=== PATIENT | male | born 1930 | race Caucasian/White ===

== ENCOUNTER 2018-02-03 04:44 | Emergency (ER) | payer OTHER, MEDICARE, BC ==
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
[2018-02-03] MEDS ORDERED: ACETAMINOPHEN 325 MG TABLET PO ONE (05:28)
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
[2018-02-03] MEDS ORDERED: LIDOCAINE 5% (700 MG) TRANSDERMAL ADH..PATCH TP ONE (08:35)
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
[2018-02-03 09:07] VITALS: BP 98/48
== END 2018-02-03 09:12 | disposition home or self-care (01) ==
LOC: ER 04:44
DX: M54.2 Cervicalgia (principal); M25.511 Pain in right shoulder; V49.40XA Driver injured in collision with unspecified motor vehicles in traffic accident, initial encounter; F17.290 Nicotine dependence, other tobacco product, uncomplicated; Z88.0 Allergy status to penicillin; Z88.8 Allergy status to other drugs, medicaments and biological substances
CPT/HCPCS: 99284; 72125; L0172; L0120

== ENCOUNTER 2018-04-14 18:14 | Emergency (ER) | payer MEDICARE, BC ==
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
[2018-04-14 20:56] LABS: ABSOLUTE LYMPHOCYTES (AUTO) 1.5 10^3/uL (0.5-4.7); ABSOLUTE MONOCYTES (AUTO) 0.6 10^3/uL (0.1-1.4); ABSOLUTE NEUT (AUTO) 4.6 10^3/uL (1.7-8.2); BASOPHILS % (AUTO) 0.4 % (0-2); EOSINOPHILS % (AUTO) 0.5 % (0-6); HEMATOCRIT 34.5 % (37.9-51.0); HEMOGLOBIN 11.9 g/dL (13.5-17.0); LYMPHOCYTES % (AUTO) 22.2 % (13-45); MEAN CORPUSCULAR HEMOGLOBIN 32.8 pg (27.0-33.4); MEAN CORPUSCULAR HGB CONC 34.4 g/dL (32.0-36.0); MEAN CORPUSCULAR VOLUME 95 fl (80-97); MONOCYTES % (AUTO) 8.5 % (3-13); PLATELET COUNT 187 10^3/uL (150-450); RED BLOOD COUNT 3.62 10^6/uL (4.35-5.55); RED CELL DISTRIBUTION WIDTH 15.6 % (11.5-14.0); SEGMENTED NEUTROPHILS % (AUTO) 68.4 % (42-78); TOTAL CELLS COUNTED % (AUTO) 100 %; WHITE BLOOD COUNT 6.7 10^3/uL (4.0-10.5)
--- NOTE | 2018-04-14 20:57 | RADIOLOGY REPORT (SQ) ---
EXAM DESCRIPTION: CHEST 2 VIEWS COMPLETED DATE/TIME: 04/14/2018 8:47 pm REASON FOR STUDY: sob COMPARISON: None. EXAM PARAMETERS: NUMBER OF VIEWS: two views TECHNIQUE: Digital Frontal and Lateral radiographic views of the chest acquired. RADIATION DOSE: NA LIMITATIONS: none FINDINGS: LUNGS AND PLEURA: Chronic interstitial changes. No focal infiltrate, masses or pneumothor ax. No pleural effusion. MEDIASTINUM AND HILAR STRUCTURES: No masses or contour abnormalities. HEART AND VASCULAR STRUCTURES: Heart normal size. No evidence for failure. BONES: No acute findings. HARDWARE: Sternotomy wires. Defibrillator. OTHER: No other significant finding. IMPRESSION: NO ACUTE RADIOGRAPHIC FINDING IN THE CHEST. TECHNICAL DOCUMENTATION: JOB ID: [id number] [employer]- All Rights Reserved Reading location - IP/workstation name: [email or web address]
[2018-04-14 21:09] LABS: ALANINE AMINOTRANSFERASE 54 U/L (21-72); ALBUMIN 4.3 g/dL (3.5-5.0); ALKALINE PHOSPHATASE 52 U/L (38-126); ANION GAP 7 (5-19); ASPARTATE AMINO TRANSFERASE 33 U/L (17-59); BILIRUBIN,DIRECT 0.5 mg/dL (0.0-0.4); BILIRUBIN,TOTAL 1.4 mg/dL (0.2-1.3); BLOOD UREA NITROGEN 27 mg/dL (7-20); CALCIUM 9.6 mg/dL (8.4-10.2); CARBON DIOXIDE 29 mmol/L (22-30); CHLORIDE 103 mmol/L (98-107); GLUCOSE 161 mg/dL (75-110); POTASSIUM 4.5 mmol/L (3.6-5.0); SODIUM 138.9 mmol/L (137-145); TOTAL PROTEIN 7.4 g/dL (6.3-8.2)
[2018-04-14 21:59] LABS: TROPONIN I 0.04 ng/mL
[2018-04-14] MEDS ORDERED: FUROSEMIDE 20 MG TABLET PO ONE (22:31)
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
[2018-04-15] MEDS ORDERED: POTASSIUM CHLORIDE 20 MEQ/15 ML UDCUP PO ONE (00:44)
[2018-04-15 01:13] VITALS: BP 124/60
--- NOTE | 2018-04-15 14:33 | EKG REPORT ---
SEVERITY:- ABNORMAL ECG - VENTRICULAR-PACED RHYTHM : Confirmed by: Caitie Narvaez MD 15-Apr-2018 14:32:54
== END 2018-04-15 01:13 | disposition home or self-care (01) ==
LOC: ER 18:14
DX: I50.9 Heart failure, unspecified (principal); R60.0 Localized edema; E11.9 Type 2 diabetes mellitus without complications; R06.02 Shortness of breath; R74.8 Abnormal levels of other serum enzymes; R79.89 Other specified abnormal findings of blood chemistry; F17.200 Nicotine dependence, unspecified, uncomplicated; I47.2 Ventricular tachycardia; Z95.810 Presence of automatic (implantable) cardiac defibrillator; Z79.899 Other long term (current) drug therapy; Z88.8 Allergy status to other drugs, medicaments and biological substances; Z88.0 Allergy status to penicillin; Z95.1 Presence of aortocoronary bypass graft
CPT/HCPCS: 93005; 99284; 36415; 85025; 80053; 84484; 83880; 71046; 93010; A9270 ×2

== ENCOUNTER → 2018-12-14 | Outpatient (CLI) | payer MEDICARE, BC ==
--- NOTE | 2018-12-14 09:49 | RADIOLOGY REPORT (SQ) ---
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 TECHNIQUE: CT scan of the chest performed using helical scanning technique with dynamic intravenous contrast injection. Images reviewed with lung, soft tissue and bone windows. Reconstructed coronal and sagittal MPR and MIP images reviewed. All images stored on PACS. All CT scanners at this facility use dose modulation, iterative reconstruction, and/or weight based d osing when appropriate to reduce radiation dose to as low as reasonably achievable (ALARA). [facility]: Dose Right [facility]: CareDose [facility]: Dose Right [facility]: Teradose 4D [facility]: [employer] CONTRAST TYPE AND DOSE: contrast/concentration: Isovue 350.00 mg/ml; Total Contrast Delivered: 80.0 ml; Total Saline Delivered: 55.0 ml RENAL FUNCTION: Creatinine 1.0 RADIATION DOSE: . LIMITATIONS: None. 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 No consolidation. No suspicious pulmonar y nodules. There are bilateral emphysematous changes. There is a small subpleural bleb in the right lower lobe. HILAR AND MEDIASTINAL STRUCTURES: No identified masses or abnormal nodes. HEART AND VASCULAR STRUCTURES: There is coronary artery calcification. No pericardial effusion. HARDWARE: Median sternotomy wires are in place along with battery pack and leads. UPPER ABDOMEN: There are gallstones. THYROID AND OTHER SOFT TISSUES: No masses. No adenopathy. BONES: There is slight wedging of T12. This has been present at least since March 2018. OTHER: No other significant finding. IMPRESSION: Emphysematous changes with subpleural fibrosis. No evidence of metastatic disease in th e chest. TECHNICAL DOCUMENTATION: JOB ID: [id number] Quality ID # [id number]: Final reports with documentation of one or more dose reduction techniques (e.g., Au tomated exposure control, adjustment of the mA and/or kV according to patient size, use of iterative reconstruction technique) 2010 [employer]- All Rights Reserved Reading location - IP/workstation name: [email or web address]
--- NOTE | 2018-12-14 09:51 | RADIOLOGY REPORT (SQ) ---
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 Reconstructed coronal and sagittal MPR images reviewed. All images stored on PACS. All CT scanners at this facility use dose modulation, iterative reconstruction, and/or weight based d osing when appropriate to reduce radiation dose to as low as reasonably achievable (ALARA). [facility]: Dose Right [facility]: CareDose [facility]: Dose Right [facility]: Teradose 4D [facility]: [employer] CONTRAST TYPE AND DOSE: 80 mL IV Omnipaque 350- low osmolar. RENAL FUNCTION: Creatinine 1.0 RADIATION DOSE: 13.7 mGy . LIMITATIONS: Suboptimal contrast bolus FINDINGS: SKULL BASE: Intact. Inferior brain parenchyma unremarkable MAJOR SALIVARY GLANDS: No solid or cystic masses. No inflammatory changes. LYMPHADENOPATHY: No adenopathy. MUCOSAL MASSES OR ASYMMETRY: No mucosal masses or asymmetry. LARYNX/CORDS: There is calcification along the base of the epiglottis unchanged from 02/03/2018. Ther e is medial deviation of the right arytenoid cartilage, question right vocal cord dysfunction. No di screte supraglottic or glottic mass is identified. VASCULAR STRUCTURES: The major vessels are patent. LUNG APICES: Clear. BONES: Degenerative disc changes at C4-5, C5-6 and C6-7 THYROID: Normal size. No masses. PARANASAL SINUSES: Clear. OTHER: No other significant finding. IMPRESSION: No bulky laryngeal mass is identified. TECHNICAL DOCUMENTATION: JOB ID: [id number] Quality ID # [id number]: Final reports with documentation of one or more dose reduction techniques (e.g., Au tomated exposure control, adjustment of the mA and/or kV according to patient size, use of iterative reconstruction technique) 2010 [employer]- All Rights Reserved Reading location - IP/workstation name: [email or web address]
== END ==
LOC: RAD 08:53
PROVIDERS: ATTEND Otolaryngology
DX: C32.9 Malignant neoplasm of larynx, unspecified (principal)
CPT/HCPCS: 70491; 71260; 82565

== ENCOUNTER → 2018-12-23 | Outpatient (CLI) | payer MEDICARE, BC ==
[~2018-12-23] MED LIST: BUPIVACAINE HCL 0.5 % INJ/PF 30 ML SDV ONE; METHYLPREDNISOLONE ACETATE INJ 40 MG/1 ML ML ONE
--- NOTE | 2018-12-24 09:07 | RADIOLOGY REPORT (SQ) ---
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 RADIONUCLIDE AND DOSE: 11.56 mCi F18 FDG The route of agent administration: Intravenous FASTING BLOOD SUGAR: 84 mg/dl CONTRAST TYPE AND DOSE: No CT contrast given. TECHNIQUE: Blood glucose level was verified. Above dose of FDG was injected intravenously. 2-D seg mented attenuation correction images were obtained from the base of the skull to the midthighs. Nonc ontrast CT images were obtained for attenuation correction and fusion with emission images. CT image s were performed without oral or intravenous contrast and are not sensitive for parenchymal lesions. A series of overlapping emission PET images were obtained. Images reviewed and manipulated at [facility] work station by the radiologist. Images stored on PACS. LIMITATIONS: None. FINDINGS: HEAD AND NECK: There is increased uptake 6.1 SUV adjacent to the left aryepiglottic fold. Slight asymmetry without well defined mass. CHEST: No areas of abnormal metabolic activity in the chest. ABDOMEN AND PELVIS: No areas of abnormal metabolic activity in the abdomen or pelvis. Expected physi ologic activity is present in the genitourinary system and bowel. PROXIMAL LOWER EXTREMITIES: No areas of abnormal metabolic activity in the soft tissues of the lower extremities. BONES: No abnormal metabolic activity in the visualized skeleton. ADDITIONAL CT FINDINGS: No additional significant findings on the noncontrast CT images. OTHER: Blood pool 1.7 SUV. Liver background 1.9 SUV. IMPRESSION: Hypermetabolic left aryepiglottic fold. No evidence of metastatic disease. TECHNICAL DOCUMENTATION: JOB ID: [id number]- All Rights Reserved Reading location - IP/workstation name: [email or web address]
== END ==
LOC: RAD 19:09
PROVIDERS: ATTEND Otolaryngology
DX: C32.9 Malignant neoplasm of larynx, unspecified (principal)
CPT/HCPCS: 78815; A9552; J1030; J3490

== ENCOUNTER 2019-11-22 08:23 | Inpatient (IN) | payer MEDICARE, BC ==
[2019-11-22] MEDS ORDERED: NORMAL SALINE 1000 ML 1,000 ML IV ONE (08:33)
[2019-11-22 08:55] LABS: ABSOLUTE LYMPHOCYTES (AUTO) 0.4 10^3/uL (0.5-4.7); ABSOLUTE MONOCYTES (AUTO) 0.3 10^3/uL (0.1-1.4); ABSOLUTE NEUT (AUTO) 6.2 10^3/uL (1.7-8.2); BASOPHILS % (AUTO) 0.3 % (0-2); HEMATOCRIT 27.8 % (37.9-51.0); HEMOGLOBIN 9.8 g/dL (13.5-17.0); LYMPHOCYTES % (AUTO) 5.5 % (13-45); MEAN CORPUSCULAR HEMOGLOBIN 34.2 pg (27.0-33.4); MEAN CORPUSCULAR HGB CONC 35.4 g/dL (32.0-36.0); MEAN CORPUSCULAR VOLUME 97 fl (80-97); MONOCYTES % (AUTO) 4.5 % (3-13); PLATELET COUNT 198 10^3/uL (150-450); RED BLOOD COUNT 2.87 10^6/uL (4.35-5.55); RED CELL DISTRIBUTION WIDTH 17.5 % (11.5-14.0); SEGMENTED NEUTROPHILS % (AUTO) 89.7 % (42-78); TOTAL CELLS COUNTED % (AUTO) 100 %
[2019-11-22 08:57] LABS: VENOUS BLOOD BASE EXCESS -2.1 mmol/L; VENOUS BLOOD HCO3 21.1 mmol/L (20-32); VENOUS BLOOD PCO2 31.3 mmHg (35-63); VENOUS BLOOD PH 7.45 (7.30-7.42)
[2019-11-22 09:00] LABS: APPEARANCE,URINE CLEAR; BILIRUBIN,URINE NEGATIVE (NEGATIVE); COLOR,URINE YELLOW; GLUCOSE, URINE 50 mg/dL (NEGATIVE); KETONES,URINE TRACE mg/dL (NEGATIVE); LEUKOCYTE ESTERASE,URINE NEGATIVE (NEGATIVE); NITRITE,URINE NEGATIVE (NEGATIVE); PROTEIN,URINE NEGATIVE (NEGATIVE); URINE SPECIFIC GRAVITY 1.018; UROBILINOGEN,URINE NEGATIVE mg/dL (<2.0)
--- NOTE | 2019-11-22 09:14 | RADIOLOGY REPORT (SQ) ---
EXAM DESCRIPTION: CT HEAD WITHOUT IMAGES COMPLETED DATE/TIME: 11/22/2019 8:54 am REASON FOR STUDY: Unresponsive COMPARISON: 12/23/2018 TECHNIQUE: Axial images acquired through the brain without intravenous contrast. Images reviewed wi th bone, brain and subdural windows. Additional sagittal and coronal reconstructions were generated. Images stored on PACS. All CT scanners at this facility use dose modulation, iterative reconstruction, and/or weight based d osing when appropriate to reduce radiation dose to as low as reasonably achievable (ALARA). [facility]: Dose Right [facility]: CareDose [facility]: Dose Right [facility]: Teradose 4D [facility]: [employer] RADIATION DOSE: CT Rad equipment meets quality standard of care and radiation dose reduction techniq ues were employed. CTDIvol: 53.2 mGy. DLP: 964 mGy-cm. mGy. LIMITATIONS: None. FINDINGS: VENTRICLES: Significant mass effect on the right lateral ventricular system with effacemen t and leftward shift. CEREBRUM: There is a large right holohemispheric mixed attenuation subdural hematoma all measuring up to 3.3 cm in maximal thickness (series 401, image 30). There is significant holo hemispheric sulcal and ventricular system effacement. There is associated leftward midline shift measuring 2.7 cm appr oximately with associated subfalcine herniation. No definitive large vascular territory ischemic inf arct at this time. There are nonspecific periventricular and subcortical areas of hypoattenuation, l ikely microangiopathic change. CEREBELLUM: No masses. No hemorrhage. No alteration of density. No evidence for acute infarction. EXTRAAXIAL SPACES: Large right-sided subdural hematoma as above. No discrete mass. ORBITS AND GLOBE: No intra- or extraconal masses. Normal contour of globe without masses. Bilateral cataract surgery. CALVARIUM: No fracture. No suspicious osseous lesions. PARANASAL SINUSES: Mucosal thickening within the ethmoid air cells. Gas fluid level noted within the left maxillary sinus. Remaining sinuses are clear. SOFT TISSUES: There are multiple small foci of gas within the bilateral advanced registered nurse spaces No mass. N o drainable collection. OTHER: No other significant finding. IMPRESSION: 1. Large right holohemispheric mixed density subdural hematoma measuring up to 3.3 cm i n maximal thickness. Significant sulcal and ventricular system effacement with 2.7 cm of right to le ft midline shift and associated subfalcine herniation. Foramen magnum remains patent. 2. Scattered foci of subcutaneous gas within the bilateral advanced registered nurse spaces, etiology uncertain but differential includes iatrogenic from intravenous administration, penetrating injury or gas-forming organism with the former favored. 3. 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 EVIDENCE OF ACUTE STROKE: Subdural hematoma COMMENT: Pertinent positive or negative findings of the imaging study reported as a CRITICAL EXAM yanna DEVRIES MD at09:04 on 11/22/2019. Category of Critical Exam: Subdural hematoma Quality ID # [id number]: Final reports with documentation of one or more dose reduction techniques (e.g., Au tomated exposure control, adjustment of the mA and/or kV according to patient size, use of iterative reconstruction technique) TECHNICAL DOCUMENTATION: JOB ID: [id number] 2010 [employer]- All Rights Reserved Reading location - IP/workstation name: [email or web address]
--- NOTE | 2019-11-22 09:16 | RADIOLOGY REPORT (SQ) ---
EXAM DESCRIPTION: CHEST SINGLE VIEW IMAGES COMPLETED DATE/TIME: 11/22/2019 8:52 am REASON FOR STUDY: Unresponsive COMPARISON: 04/14/2018 EXAM PARAMETERS: NUMBER OF VIEWS: One view. TECHNIQUE: Single frontal radiographic view of the chest acquired. RADIATION DOSE: NA LIMITATIONS: None. FINDINGS: LUNGS AND PLEURA: Low volumes with ill-defined bibasilar opacities possibly atelectasis or infection. Trace left effusion. No pneumothorax. MEDIASTINUM AND HILAR STRUCTURES: No discrete mass. HEART AND VASCULAR STRUCTURES: Enlarged, stable. BONES: Sternotomy changes. HARDWARE: Left sided cardiac pacer/defibrillator with leads overlying right atrium and right ventricl e, stable. Sternotomy hardware. Surgical clips overlie left neck. Skin chemo overlie right chest . OTHER: No other significant finding. IMPRESSION: Minimal ill-defined bibasilar opacities, possibly atelectasis or infection, with trace l eft effusion. TECHNICAL DOCUMENTATION: JOB ID: [id number] 2010 [employer]- All Rights Reserved Reading location - IP/workstation name: [email or web address]
[2019-11-22 09:36] LABS: FREE T3 2.43 pg/mL (2.77-5.27); FREE T4 (FREE THYROXINE) 1.46 ng/dL (0.78-2.19)
[2019-11-22] MEDS ORDERED: ACETAMINOPHEN 650 MG SUPP.RECT PR PRN (10:29)
--- NOTE | 2019-11-22 10:29 | PDOC H&P ---
History of Present Illness Admission Date/PCP: SOLOMON HAYS MD Patient complains of: Patient was found unresponsive by family. History of Present Illness: YAMIL VÁZQUEZ is a 89 year old male who recently underwent an esophagectomy with complications. Since August he has been in the hospital for more than 60 days and has required multiple surgeries. He has an extensive cardiac history as well. The patient was well at that time last night. This morning he was unresponsive. There was vomit on the bed. EMS was called right away. Family reports that he has been having some diarrhea for the past week but otherwise has shown slow improvement from his stented complicated hospitalization. He did have a fall 2 weeks ago and he is not on anticoagulation. During the evaluation emergency department he was found to have a massive right-sided subarachnoid hemorrhage with shift herniation. I was called by the emergency department physician and we both spoke to the family about the grave prognosis. The patient's daughter and granddaughter are both nurses. After lengthy discussions and realistic expectations it was decided to admit the patient for comfort measures only. Past Medical History Cardiac Medical History: Reports: Atrial Fibrillation, Congestive Heart Failure, Myocardial Infarction, Hyperlipidema Endocrine Medical History: Reports: Diabetes Mellitus Type 2 Past Surgical History Past Surgical History: Reports: Orthopedic Surgery - hand, Other - Esophagectomy with pectoral flap reconstruction. Recent tracheostomy. 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 - Advance Directive Resuscitation Status: Comfort Measures Only Surrogate healthcare decision maker:: The patient's , daughter and granddaughter all collaborated on decision crispin ing today Family History Family History: Reviewed & Not Pertinent Family History: Unable to obtain due to patient unresponsive Parental Family History Reviewed: No Children Family History Reviewed: No Sibling(s) Family History Reviewed.: No Medication/Allergy Home Medications: Apixaban [Eliquis] 5 mg PO Q12 04/14/18 Carvedilol [Coreg 3.125 mg Tablet] 3.125 mg PO Q12 04/14/18 Cholecalciferol (Vitamin D3) [Vitamin D3 1000 Unit Tablet] 1,000 unit PO DAILY 04/14/18 Glyburide 2.5 mg PO BID 04/14/18 Magnesium Oxide 400 mg PO DAILY 04/14/18 Cedar-3 Fatty Acids/Fish Oil [Fish Oil 1,000 Mg Capsule] 1 each PO DAILY 04/14/18 Quinapril HCl [Accupril] 5 mg PO DAILY 04/14/18 Rosuvastatin Calcium [Crestor 5 mg Tablet] 5 mg PO DAILY 04/14/18 Spironolactone 12.5 mg PO BID 04/14/18 Tamsulosin HCl [Flomax] 0.4 mg PO DAILY 04/14/18 Furosemide 20 mg PO BID #10 tablet 04/15/18 Potassium Chloride 20 meq PO DAILY #30 tab.er.prt 04/15/18 Allergies/Adverse Reactions: diazepam [From Valium] Allergy (Verified 04/14/18 19:58) Penicillins Allergy (Verified 04/14/18 19:58) zolpidem [From Ambien] Allergy (Verified 04/14/18 19:58) Review of Systems ROS unobtainable: Due to mental status Physical Exam Vital Signs: Temp Pulse Resp BP Pulse Ox 94.2 F L 71 15 110/67 95 11/22/19 08:32 11/22/19 08:32 11/22/19 10:11 11/22/19 10:11 11/22/19 10:11 Intake & Output 11/21/19 11/22/19 11/23/19 06:59 06:59 06:59 Weight 77.1 kg General appearance: PRESENT: well-developed Head exam: PRESENT: atraumatic, normocephalic Eye exam: PRESENT: other - Enlarged right pupil unresponsive to light. Left pupil minimally responsive. Ear exam: PRESENT: normal external ear exam. ABSENT: bleeding, drainage Neck exam: PRESENT: tracheostomy Respiratory exam: PRESENT: clear to auscultation pj - Anteriorly, symmetrical, unlabored. ABSENT: rales, rhonchi, tachypnea, wheezes Cardiovascular exam: PRESENT: RRR, +S1, +S2 GI/Abdominal exam: PRESENT: diminished bowel sounds, soft. ABSENT: tenderness Rectal exam: PRESENT: deferred Gentrourinary exam: ABSENT: indwelling catheter Extremities exam: ABSENT: pedal edema Musculoskeletal exam: PRESENT: normal inspection Neurological exam: ABSENT: awake - Patient is unresponsive Psychiatric exam: PRESENT: other - Unresponsive Focused psych exam: PRESENT: other - Unresponsive Skin exam: PRESENT: dry, normal color, warm Results Laboratory Results: 11/22/19 08:34 11/22/19 11/22/19 11/22/19 08:34 08:34 08:34 WBC 7.0 RBC 2.87 L Hgb 9.8 L Hct 27.8 L MCV 97 MCH 34.2 H MCHC 35.4 RDW 17.5 H Plt Count 198 Seg Neutrophils % 89.7 H VBG pH VBG pCO2 VBG HCO3 VBG Base Excess Lactic Acid 0.9 Free T4 Free T3 pg/mL Urine Color YELLOW Urine Appearance CLEAR Urine pH 6.0 Ur Specific [place] 1.018 Urine Protein NEGATIVE Urine Glucose (UA) 50 H Urine Ketones TRACE H Urine Blood NEGATIVE Urine Nitrite NEGATIVE Ur Leukocyte Esterase NEGATIVE Urine WBC (Auto) 0 Urine RBC (Auto) 1 11/22/19 11/22/19 08:34 08:34 WBC RBC Hgb Hct MCV MCH MCHC RDW Plt Count Seg Neutrophils % VBG pH 7.45 H VBG pCO2 31.3 L VBG HCO3 21.1 VBG Base Excess -2.1 Lactic Acid Free T4 1.46 Free T3 pg/mL 2.43 L Urine Color Urine Appearance Urine pH Ur Specific [place] Urine Protein Urine Glucose (UA) Urine Ketones Urine Blood Urine Nitrite Ur Leukocyte Esterase Urine WBC (Auto) Urine RBC (Auto) 11/22/19 08:34 Troponin I < 0.012 Impressions: Chest X-Ray 11/22/19 08:32 IMPRESSION: Minimal ill-defined bibasilar opacities, possibly atelectasis or infection, with trace left effusion. Head CT 11/22/19 08:32 IMPRESSION: 1. Large right holohemispheric mixed density subdural hematoma measuring up to 3.3 cm in maximal thickness. Significant sulcal and ventricular system effacement with 2.7 cm of right to left midline shift and associated subfalcine herniation. Foramen magnum remains patent. 2. Scattered foci of subcutaneous gas within the bilateral regulator tester spaces, etiology uncertain but differential includes iatrogenic from intravenous administration, penetrating injury or gas-forming organism with the former favored. 3. Additional parenchymal atrophy and nonspecific white matter changes, likely sequelae of microangiopathic disease. EVIDENCE OF ACUTE STROKE: Subdural hematoma Assessment and Plan - Diagnosis (1) Subarachnoid hemorrhage with coma Is this a current diagnosis for this admission?: Yes Plan: November 22, 2019 Due to the massive nature of the subarachnoid hemorrhage and the resulting severe midline shift and herniation of the brainstem the family has decided comfort measures would be best. The patient will be admitted. I reviewed the orders that I intended to place with the patient's daughter since retired emergency department nurse) granddaughter (active nurse ). They agreed with the plan. They were able to contact their appliance technician who performed last rights in the emergency department. The patient will be admitted to a medical room. Visiting policies will be reviewed and the family instructed moving forward. (2) Esophageal cancer Qualifiers: Malignant neoplasm of esophagus location: unspecified location Qualified Code(s): C15.9 - Malignant neoplasm of esophagus, unspecified Is this a current diagnosis for this admission?: Yes Plan: Recent esophagectomy with complications requiring multiple additional surgeries. Just started to begin oral diet. Nutrition was via PEG tube. - Time Time Spent with patient: 35 or more minutes Medications reviewed and adjusted accordingly: Yes - Inpatient Certification Based on my medical assessment, after consideration of the patient's comorbidities, presenting symptoms, or acuity I expect that the services needed warrant INPATIENT care.: Yes I certify that my determination is in accordance with my understanding of Medicare's requirements for reasonable and necessary INPATIENT services [42 CFR 412.3e].: Yes Medical Necessity: Significant Comorbidiites Make Outpatient Treatment Too R isky, Need for Pain Control Post Hospital Care: D/C Senior Oracle Database Developer Documentation
[2019-11-22 11:13] LABS: ALBUMIN 3.3 g/dL (3.5-5.0); ALKALINE PHOSPHATASE 85 U/L (38-126); ANION GAP 11 (5-19); ASPARTATE AMINO TRANSFERASE 24 U/L (17-59); BILIRUBIN,DIRECT 0.2 mg/dL (0.0-0.4); BILIRUBIN,TOTAL 1.1 mg/dL (0.2-1.3); BLOOD UREA NITROGEN 21 mg/dL (7-20); CALCIUM 8.7 mg/dL (8.4-10.2); CARBON DIOXIDE 23 mmol/L (22-30); CHLORIDE 93 mmol/L (98-107); CREATINE KINASE 151 U/L (55-170); GLUCOSE 257 mg/dL (75-110); POTASSIUM 4.4 mmol/L (3.6-5.0); TOTAL PROTEIN 6.5 g/dL (6.3-8.2)
--- NOTE | 2019-11-22 13:13 | ER Document Report ---
Entered by SG ELY SCRIBE 11/22/19 0846 Acting as scribe for:FLORESITA DEVRIES MD ED General - General Stated Complaint: UNRESPONSIVE Time Seen by Provider: 11/22/19 08:30 Primary Care Provider: SOLOMON HAYS MD [Primary Care Provider] - Follow up as needed Information source: Relative, Emergency Med Personnel Notes: This 89-year-old male with extensive cardiac history and recent total laryngectomy, pectoral muscle reconstruction and tracheostomy presents to the emergency department via EMS unresponsive. Patient was last known well last night. Patient was found this morning unresponsive and with proof of vomiting during the night. Patient's family cleaned the patient and called EMS. Patient's family reports diarrhea for the past week. Patient's family denies known i nfection, nausea or vomiting prior to tonight. Patient walks and talks at baseline. Family reports that patient's last fall was 2 weeks ago. Patient's full HPI is unobtainable due to being unresponsive in emergency department. TRAVEL OUTSIDE OF THE [place] IN LAST 30 DAYS: No - Related Data Allergies/Adverse Reactions: diazepam [From Valium] Allergy (Verified 04/14/18 19:58) Penicillins Allergy (Verified 04/14/18 19:58) zolpidem [From Ambien] Allergy (Verified 04/14/18 19:58) Past Medical History - General Information source: Patient, Relative - Social History Smoking Status: Former Smoker Cigarette use (# per day): No Chew tobacco use (# tins/day): No Lives with: Family Family History: Reviewed & Not Pertinent - Past Medical History Cardiac Medical History: Reports: Hx Atrial Fibrillation, Hx Congestive Heart Failure, Hx Heart Attack, Hx Hypercholesterolemia Endocrine Medical History: Reports: Hx Diabetes Mellitus Type 2 Past Surgical History: Reports: Hx Abdominal Surgery - hernia repair, Hx Cardiac Surgery - quad bypass; PM/AICD; ablation, Hx Orthopedic Surgery - hand, Hx Thyroid Surgery - Thyroidectomy- Left, Other - Laryngectomy, right pectoral muscle moved. Review of Systems - Review of Systems -: Yes ROS unobtainable due to patient's medical condition Physical Exam - Vital signs Vitals: Resp Pulse Ox 16 93 11/22/19 08:25 11/22/19 08:25 - Notes Notes: Physical Exam: General: Unresponsive with minimal response to painful stimuli. HEENT: Atraumatic. Pupils are fixed and dilated 5-6mm. Oropharynx clear. Neck: Tracheostomy Respiratory: No respiratory distress. Clear and equal breath sounds bilaterally. Right chest chemo from a pectoral muscle transposition from the right anterior chest wall up to the neck for reconstructive reasons. Cardiovascular: Regular rate and rhythm. Abdominal: Normal Inspection. Non-tender. No distension. Normal Bowel Sounds. Back: No gross abnormalities. Extremities: Patient does not spontaneously move any extremities. Upper extremities: Normal inspection. Normal ROM. Lower extremities: Normal inspection. No edema. Normal ROM. Neurological: Unresponsive. Detailed neurological exam was not done due to the CT scan findings. Skin: Cool. Dry. Normal color. Course - Vital Signs Vital signs: Temp Pulse Resp BP Pulse Ox 94.2 F L 71 17 117/68 95 11/22/19 08:32 11/22/19 08:32 11/22/19 09:01 11/22/19 09:01 11/22/19 09:01 - Laboratory Result Diagrams: 11/22/19 08:34 11/22/19 08:34 Laboratory results interpreted by me: 11/22/19 11/22/19 11/22/19 08:33 08:34 08:34 RBC 2.87 L Hgb 9.8 L Hct 27.8 L MCH 34.2 H RDW 17.5 H Lymph % (Auto) 5.5 L Absolute Lymphs (auto) 0.4 L Seg Neutrophils % 89.7 H VBG pH VBG pCO2 POC Glucose 271 H Free T3 pg/mL Urine Glucose (UA) 50 H Urine Ketones TRACE H Urine Ascorbic Acid 40 H 11/22/19 11/22/19 08:34 08:34 RBC Hgb Hct MCH RDW Lymph % (Auto) Absolute Lymphs (auto) Seg Neutrophils % VBG pH 7.45 H VBG pCO2 31.3 L POC Glucose Free T3 pg/mL 2.43 L Urine Glucose (UA) Urine Ketones Urine Ascorbic Acid - Diagnostic Test Radiology reviewed: Image reviewed, Reports reviewed - CT scan of the head shows large right-sided subdural hematoma up to 3.3 cm in maximal thickness causing leftward midline shift measuring 2.7 cm. - EKG Interpretation by Ne EKG shows normal: [place], Intervals, QRS Complexes, ST-T Waves Rate: Normal - 70 Rhythm: Other - Ventricular paced rhythm - Consults Dr. Veronica Time consulted: 08:23 Consulted provider: will come to ER - He will come see the family and discuss c omfort care measures. Critical Care Note - Critical Care Note Total time excluding time spent on procedures (mins): 35 Discharge - Discharge Clinical Impression: Acute subdural hematoma Comatose Qualifiers: Coma depth: unspecified coma depth Qualified Code(s): R40.20 - Unspecified coma Condition: Poor Disposition: ADMITTED INPATIENT Admitting Provider: Glenys (Hospitalist) Unit Admitted: Medical Floor Referrals: SOLOMON HAYS MD [Primary Care Provider] - Follow up as needed I personally performed the services described in the documentation, reviewed and edited the documentation which was dictated to the scribe in my presence, and it accurately records my words and actions.
--- NOTE | 2019-11-22 14:29 | EKG REPORT ---
SEVERITY:- ABNORMAL ECG - VENTRICULAR-PACED RHYTHM : Confirmed by: Caitie Narvaez MD 22-Nov-2019 14:28:41
--- NOTE | 2019-11-22 15:33 | ADVANCED CARE ---
- Diagnosis (1) Subarachnoid hemorrhage with coma Diagnosis Current: Yes Attendance: Discussions were held at the bedside with the patient's , daughter, granddaughter and other family members as well as just outside the room with the patient's daughter and granddaughter who are nurses. The portion outside of the room was due to the patient receiving last rights from his diesel mechanic apprentice. Resuscitation Status: Comfort Measures Only Discussion: We reviewed the CT scan. We reviewed his past medical history and recent surgical complications that required over 60 days in the hospital since August. Reviewed the grave prognosis. It was decided to admit the patient on comfort measures only. The family had the opportunity to ask questions. All questions were answered to their satisfaction. The patient and his have made arrangements, that have been pre-k, in [place]. We will need to figure out the exact mechanism and availability due to the restrictions from Covid-19. Care Planning Goals: To keep the patient comfortable until his demise which should be within days. Document(s) Completed: None Time Spent: 25 minutes
--- NOTE | 2019-11-23 13:31 | PDOC PROGRESS REPORT ---
Subjective Progress Note for:: 11/23/19 - ' Subjective:: The patient's , daughter and granddaughter are at the bedside. The patient's daughter reports that the patient is coughing and producing thick darkly colored sputum. There have been suctioning through the tracheostomy as needed. They also noticed a change in the respiratory pattern. Reason For Visit: MASSIVE RIGHT SUBARACHNOID HEMORRHAGE Physical Exam Vital Signs: Temp Pulse Resp BP Pulse Ox 94.2 F L 70 17 114/64 93 11/22/19 08:32 11/22/19 14:32 11/22/19 14:32 11/22/19 14:32 11/22/19 14:32 Intake & Output 11/22/19 11/23/19 11/24/19 06:59 06:59 06:59 Intake Total 181 Output Total 250 Balance -69 Weight 77.1 kg General appearance: PRESENT: mild distress, other - The patient is coughing intermittently. Head exam: PRESENT: normocephalic Respiratory exam: PRESENT: rhonchi - Rhonchi noted anteriorly, symmetrical, unlabored, other - Irregular respirations. ABSENT: tachypnea, wheezes Cardiovascular exam: PRESENT: RRR, +S1, +S2 GI/Abdominal exam: PRESENT: diminished bowel sounds, soft. ABSENT: tenderness Rectal exam: PRESENT: deferred Extremities exam: ABSENT: pedal edema Neurological exam: PRESENT: other - Unresponsive Psychiatric exam: PRESENT: other - Unresponsive Focused psych exam: PRESENT: other - Unresponsive Skin exam: PRESENT: dry, pallor. ABSENT: rash Results Laboratory Results: 11/22/19 08:34 11/22/19 08:34 11/22/19 11/22/19 08:34 08:34 Creatine Kinase 151 Troponin I < 0.012 Impressions: Chest X-Ray 11/22/19 08:32 IMPRESSION: Minimal ill-defined bibasilar opacities, possibly atelectasis or infection, with trace left effusion. Head CT 11/22/19 08:32 IMPRESSION: 1. Large right holohemispheric mixed density subdural hematoma measuring up to 3.3 cm in maximal thickness. Significant sulcal and ventricular system effacement with 2.7 cm of right to left midline shift and associated subfalcine herniation. Foramen magnum remains patent. 2. Scattered foci of subcutaneous gas within the bilateral eeo officer spaces, etiology uncertain but differential includes iatrogenic from intravenous adm inistration, penetrating injury or gas-forming organism with the former favored. 3. Additional parenchymal atrophy and nonspecific white matter changes, likely sequelae of microangiopathic disease. EVIDENCE OF ACUTE STROKE: Subdural hematoma Assessment and Plan - Diagnosis (1) Subarachnoid hemorrhage with coma Is this a current diagnosis for this admission?: Yes Plan: November 22, 2019 Due to the massive nature of the subarachnoid hemorrhage and the resulting severe midline shift and herniation of the brainstem the family has decided comfort measures would be best. The patient will be admitted. I reviewed the orders that I intended to place with the patient's daughter since retired emergency department nurse) granddaughter (active nurse ). They agreed with the plan. They were able to contact their monument installer who performed last rights in the emergency department. The patient will be admitted to a medical room. Visiting policies will be reviewed and the family instructed moving forward. 11/23/2019 The patient's daughter and granddaughter (nurses) have noticed a change. Despite him having a reasonable cough they have needed to suction esteban to brown sputum through his tracheostomy. His breathing pattern has occasional irregularity. He sounds congested. He does have a pacemaker defibrillator and so that can certainly prolong the inevitable. I did have a long discussion with the patient's , daughter and granddaughter. We reviewed consideration of turning off the pacemaker defibrillator. My explained that the heart rate slowed down and eventually the blood pressure would decrease to the point where he would not be able to maintain perfusion and it would be consistent with passing away in your sleep. It is also possible with the AICD turned off he could have sustained ventricular tachycardia which would also be a fatal event. Because of his cough, and respiratory pattern, if the pacemaker defibrillator is not turned off that he would likely get, or is getting, pneumonia. With that development his breathing will become altered and difficult. Without treatment this would also be fatal however it could be more uncomfortable for the patient. Because it is the 's birthday tomorrow she is struggling with decisions. I told her there was no sands. I will order a hospice consult. They could come to any decision at their own timing. The patient's daughter is the legal power of workers compensation defense attorney but in a brief discussion outside of the room she does not want to force the issue due to the acute nature of this event and the fact that her mother is still having difficulty accepting of the gravity and irreversible nature of her 's condition. I will make sure that there is IV morphine and lorazepam available as well as acetaminophen. I encouraged him to discuss the situation and let me know if they want to make a change. Otherwise we will assess daily. 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 Medications reviewed and adjusted accordingly: Yes Anticipated discharge: Hospice
[2019-11-23] MEDS: MORPHINE SULFATE 10 MG/ML INJ IV PRN ×4 (13:57→22:46)
[2019-11-23] MEDS: LORAZEPAM INJ 2 MG/1 ML VIAL IV PRN (17:56)
[2019-11-24] MEDS: MORPHINE SULFATE 10 MG/ML INJ IV PRN (05:09)
--- NOTE | 2019-11-24 12:41 | PDOC PROGRESS REPORT ---
Subjective Progress Note for:: 11/24/19 Subjective:: The patient exhibited respiratory rate of 6 last evening. He was congested and suctioning removed a lot of secretions. With the morphine he is very comfortable this morning. His pulse rate is holding in the 40s and we are limiting vital signs but he certainly appears to be maintaining a reasonable blood pressure. With the available morphine he is not exhibiting any discomfort. Reason For Visit: MASSIVE RIGHT SUBARACHNOID HEMORRHAGE Physical Exam Vital Signs: Temp Pulse Resp BP Pulse Ox 94.2 F L 70 17 114/64 93 11/22/19 08:32 11/22/19 14:32 11/22/19 14:32 11/22/19 14:32 11/22/19 14:32 Intake & Output 11/23/19 11/24/19 11/25/19 06:59 06:59 06:59 Intake Total 181 Output Total 250 525 Balance -69 -525 Weight 77.1 kg 77.2 kg General appearance: PRESENT: no acute distress, well-developed Head exam: PRESENT: atraumatic, normocephalic Ear exam: PRESENT: normal external ear exam. ABSENT: bleeding, drainage Neck exam: PRESENT: tracheostomy Respiratory exam: PRESENT: rhonchi - left, symmetrical, unlabored. ABSENT: accessory muscle use, prolonged expiratory phas, tachypnea, wheezes Cardiovascular exam: PRESENT: RRR, +S1, +S2 GI/Abdominal exam: PRESENT: diminished bowel sounds, soft, other - PEG tube in place. ABSENT: distended, tenderness Rectal exam: PRESENT: deferred Gentrourinary exam: PRESENT: indwelling catheter Extremities exam: ABSENT: pedal edema Neurological exam: PRESENT: other - Unresponsive Results Laboratory Results: 11/22/19 08:34 11/22/19 08:34 11/22/19 11/22/19 08:34 08:34 Creatine Kinase 151 Troponin I < 0.012 Impressions: Chest X-Ray 11/22/19 08:32 IMPRESSION: Minimal ill-defined bibasilar opacities, possibly atelectasis or infection, with trace left effusion. Head CT 11/22/19 08:32 IMPRESSION: 1. Large right holohemispheric mixed density subdural hematoma measuring up to 3.3 cm in maximal thickness. Significant sulcal and ventricular system effacement with 2.7 cm of right to left midline shift and associated subfalcine herniation. Foramen magnum remains patent. 2. Scattered foci of subcutaneous gas within the bilateral river rafting guide spaces, etiology uncertain but differential includes iatrogenic from intravenous administration, penetrating injury or gas-forming organism with the former favored. 3. Additional parenchymal atrophy and nonspecific white matter changes, likely sequelae of microangiopathic disease. EVIDENCE OF ACUTE STROKE: Subdural hematoma Assessment and Plan - Diagnosis (1) Subarachnoid hemorrhage with coma Is this a current diagnosis for this admission?: Yes Plan: November 22, 2019 Due to the massive nature of the subarachnoid hemorrhage and the resulting severe midline shift and herniation of the brainstem the family has decided comfort measures would be best. The patient will be admitted. I reviewed the orders that I intended to place with the patient's daughter since retired emergency department nurse) granddaughter (active nurse ). They agreed with the plan. They were able to contact their hydraulic specialist who performed last rights in the emergency department. The patient will be admitted to a medical room. Visiting policies will be reviewed and the family instructed moving forward. 11/23/2019 The patient's daughter and granddaughter (nurses) have noticed a change. Despite him having a reasonable cough they have needed to suction esteban to brown sputum through his tracheostomy. His breathing pattern has occasional irregularity. He sounds congested. He does have a pacemaker defibrillator and so that can certainly prolong the inevitable. I did have a long discussion with the patient's , daughter and granddaughter. We reviewed consideration of turning off the pacemaker defibrillator. My explained that the heart rate slowed down and eventually the blood pressure would decrease to the point where he would not be able to maintain perfusion and it would be consistent with passing away in your sleep. It is also possible with the AICD turned off he could have sustained ventricular tachycardia which would also be a fatal event. Because of his cough, and respiratory pattern, if the pacemaker defibrillator is not turned off that he would likely get, or is getting, pneumonia. With that development his breathing will become altered and difficult. Without treatment this would also be fatal however it could be more uncomfortable for the patient. Because it is the 's birthday tomorrow she is struggling with decisions. I told her there was no sands. I will order a hospice consult. They could come to any decision at their own timing. The patient's daughter is the legal power of estate attorney but in a brief discussion outside of the room she does not want to force the issue due to the acute nature of this event and the fact that her mother is still having difficulty accepting of the gravity and irreversible nature of her 's condition. I will make sure that there is IV morphine and lorazepam available as well as acetaminophen. I encouraged him to discuss the situation and let me know if they want to make a change. Otherwise we will assess daily. 11/24/2019 The patient is comfortable. Family reports altered breathing pattern. With morphine to be in no pain and there is no air hunger at this time. He appears quite comfortable. Today is his 's birthday and they did ask my best guess as to when he might . It is difficult to say. We have placed a magnet over his AICD/pacemaker. This will not turn off the pacemaker will block the AICD firing. I still believe he will pneumonia which will likely be the complication contributing to his demise. (2) Esophageal cancer Qualifiers: Malignant neoplasm of esophagus location: unspecified location Qualified Code(s): C15.9 - Malignant neoplasm of esophagus, unspecified Is this a current diagnosis for this admission?: Yes Plan: Recent esophagectomy with complications requiring multiple additional surgeries. Just started to begin oral diet. Nutrition was via PEG tube. - Time Time Spent with patient: 25-34 minutes Medications reviewed and adjusted accordingly: Yes
[2019-11-25] MEDS: MORPHINE SULFATE 10 MG/ML INJ IV PRN ×3 (00:12→17:15)
[2019-11-25] MEDS: LORAZEPAM INJ 2 MG/1 ML VIAL IV PRN ×3 (00:59→15:46)
[2019-11-25] MEDS ORDERED: ATROPINE SULFATE 1% OPH SOLN 5 ML BOTTLE SL PRN (18:36)
[2019-11-25] MEDS ORDERED: LORAZEPAM INJ 2 MG/1 ML VIAL IV SCH (18:45)
[2019-11-25] MEDS ORDERED: SCOPOLAMINE HYDROBROMIDE 1.5 MG PATCH.TD72 TD ONE (19:00)
--- NOTE | 2019-11-25 19:00 | PDOC PROGRESS REPORT ---
Subjective Progress Note for:: 11/25/19 Subjective:: Patient was seen on morning rounds and again this afternoon. Met with family on multiple separate occasions to discuss goals of care; see separate ACP note. Patient was found to be resting comfortably, on room air. He remains obtunded. Noted to have an even and unlabored respiratory pattern w/ rate 12-18. Occasional facial twitching. Reason For Visit: MASSIVE RIGHT SUBARACHNOID HEMORRHAGE Physical Exam Vital Signs: Temp Pulse Resp BP Pulse Ox 94.2 F L 70 17 114/64 93 11/22/19 08:32 11/22/19 14:32 11/22/19 14:32 11/22/19 14:32 11/22/19 14:32 Intake & Output 11/24/19 11/25/19 11/26/19 06:59 06:59 06:59 Output Total 525 950 Balance -525 -950 Weight 77.2 kg 77.5 kg General appearance: PRESENT: no acute distress, well-developed, well-nourished Head exam: PRESENT: atraumatic, normocephalic Neck exam: PRESENT: tracheostomy Respiratory exam: PRESENT: rhonchi, symmetrical, unlabored, other - Room air; SpO2 93% Cardiovascular exam: PRESENT: RRR GI/Abdominal exam: PRESENT: other - PEG Gentrourinary exam: PRESENT: indwelling catheter Extremities exam: PRESENT: pedal edema - trace Neurological exam: PRESENT: other - obtunded Skin exam: PRESENT: pallor, warm. ABSENT: mottled Results Laboratory Results: 11/22/19 08:34 11/22/19 08:34 11/22/19 11/22/19 08:34 08:34 Creatine Kinase 151 Troponin I < 0.012 Impressions: Chest X-Ray 11/22/19 08:32 IMPRESSION: Minimal ill-defined bibasilar opacities, possibly atelectasis or infection, with trace left effusion. Head CT 11/22/19 08:32 IMPRESSION: 1. Large right holohemispheric mixed density subdural hematoma andra suring up to 3.3 cm in maximal thickness. Significant sulcal and ventricular system effacement with 2.7 cm of right to left midline shift and associated subfalcine herniation. Foramen magnum remains patent. 2. Scattered foci of subcutaneous gas within the bilateral cotton machine operator spaces, etiology uncertain but differential includes iatrogenic from intravenous administration, penetrating injury or gas-forming organism with the former favored. 3. Additional parenchymal atrophy and nonspecific white matter changes, likely sequelae of microangiopathic disease. EVIDENCE OF ACUTE STROKE: Subdural hematoma Assessment and Plan - Diagnosis (1) Subarachnoid hemorrhage with coma Is this a current diagnosis for this admission?: Yes Plan: November 22, 2019 Due to the massive nature of the subarachnoid hemorrhage and the resulting severe midline shift and herniation of the brainstem the family has decided comfort measures would be best. The patient will be admitted. I reviewed the orders that I intended to place with the patient's daughter since retired emergency department nurse) granddaughter (active nurse ). They agreed with the plan. They were able to contact their cotton header who performed last rights in the emergency department. The patient will be admitted to a medical room. Visiting policies will be reviewed and the family instructed moving forward. 11/23/2019 The patient's daughter and granddaughter (nurses) have noticed a change. Despite him having a reasonable cough they have needed to suction esteban to brown sputum through his tracheostomy. His breathing pattern has occasional irregularity. He sounds congested. He does have a pacemaker defibrillator and so that can certainly prolong the inevitable. I did have a long discussion with the patient's , daughter and granddaughter. We reviewed consideration of turning off the pacemaker defibrillator. My explained that the heart rate slowed down and eventually the blood pressure would decrease to the point where he would not be able to maintain perfusion and it would be consistent with passing away in your sleep. It is also possible with the AICD turned off he could have sustained ventricular tachycardia which would also be a fatal event. Because of his cough, and respiratory pattern, if the pacemaker defibrillator is not turned off that he would likely get, or is getting, pneumonia. With that development his breathing will become altered and difficult. Without treatment this would also be fatal however it could be more uncomfortable for the patient. Because it is the 's birthday tomorrow she is struggling with decisions. I told her there was no sands. I will order a hospice consult. They could come to any decision at their own timing. The patient's daughter is the legal power of commercial litigation attorney but in a brief discussion outside of the room she does not want to force the issue due to the acute nature of this event and the fact that her mother is still having difficulty accepting of the gravity and irreversible nature of her 's condition. I will make sure that there is IV morphine and lorazepam available as well as acetaminophen. I encouraged him to discuss the situation and let me know if they want to make a change. Otherwise we will assess daily. 11/24/2019 The patient is comfortable. Family reports altered breathing pattern. With morphine to be in no pain and there is no air hunger at this time. He appears quite comfortable. Today is his 's birthday and they did ask my best guess as to when he might . It is difficult to say. We have placed a magnet o christian his AICD/pacemaker. This will not turn off the pacemaker will block the AICD firing. I still believe he will pneumonia which will likely be the complication contributing to his demise. 11/25/2019 Continues on comfort care measures. We will continue as needed sliding scale morphine. Family members concerned about possible seizure activity; will provide scheduled IV Ativan every 6 hours with as needed every 2 hours. We will add scopolamine patch and atropine sublingual drops for management of oral secretions. Long discussion had with family members regarding goals of care and request to deactivate pacemaker. Discussed with Dr. Singh; advises ethics committee review. Ethics committee meeting was requested; received notification from [facility] commercial litigation attorney that this is viewed as the equivalent to terminal extubation. Received approval to proceed with deactivating pacemaker. Discussed with Dr. Veronica in detail. Due to the patient's terminal prognosis, without reasonable expectation of meaningful improvement, and certainty that patient will within the next several days, we will honor the family's request. Have placed nursing communication order to contact [employer] sales representative health insurance to deactivate the pacemaker. (2) Esophageal cancer Qualifiers: Malignant neoplasm of esophagus location: unspecified location Qualified Code(s): C15.9 - Malignant neoplasm of esophagus, unspecified Is this a current diagnosis for this admission?: Yes Plan: Recent esophagectomy with complications requiring multiple additional surgeries. Just started to begin oral diet. Nutrition was via PEG tube. Currently NPO r/t comfort care measures only.
--- NOTE | 2019-11-25 23:01 | Death Summary ---
Summary Date : 11/25/19 Time of :: 21:20 Autopsy: No Resuscitation Status: Comfort Measures Only Primary Care Provider: SOLOMON HAYS MD - Final Diagnosis (1) Subarachnoid hemorrhage with coma Is this a current diagnosis for this admission?: Yes (2) Esophageal cancer Is this a current diagnosis for this admission?: Yes Hospital Course:: YAMIL VÁZQUEZ is a 89 year old male who recently underwent an esophagectomy with complications. Since August he has been in the hospital for more than 60 days and has required multiple surgeries. He has an extensive cardiac history as well. The patient was well at that time last night. This morning he was unresponsive. There was vomit on the bed. EMS was called right away. Family reports that he has been having some diarrhea for the past week but otherwise has shown slow improvement from his stented complicated hospitalization. He did have a fall 2 weeks ago and he is not on anticoagulation. During the evaluation emergency department he was found to have a massive right-sided subarachnoid hemorrhage with shift herniation. The patient's daughter and granddaughter are both nurses. After lengthy discussions and realistic expectations it was decided to admit the patient for comfort measures only. He remained on comfort measures only and his pacemaker was stopped from pacer function on the evening of 11/25/2019. The patient's heart rate then gradually progressed to an agonal rhythm and over the course of a little more than an hour he succumbed peacefully and with dignity to his at 9:20 PM.
[2019-11-26 01:59] VITALS: BP 157/85
--- NOTE | 2019-11-28 13:14 | ADVANCED CARE ---
- Diagnosis (1) Subarachnoid hemorrhage with coma Diagnosis Current: Yes (2) Esophageal cancer Diagnosis Current: Yes Attendance: Patient's , daughter, and grand-daughter. Resuscitation Status: Comfort Measures Only Discussion: Multiple conversations had with the patient's family members over the course of the day. At each conversation, both the patient's (Jovana) and daughter (Ирина) participated. During our last conversation the patient's , daughter, and granddaughter participated in the conversation. The patient's daughter and granddaughter are both emergency department nurses and had a clear understanding of the significance of the patient's subdural hematoma with mass-effect and left-sided shift. Patient's daughter reports that overnight, she noted that his heart rate had bra dycardia down into the 30s on multiple occasions with rapid return to heart rate of 70 (admits to utilizing a home pulse oximetry device to monitor her father overnight). He has had a sustained HR in the 70s since that time. Per family request, the patient was placed on telemetry to confirm that he was in a paced rhythm. Once it was confirmed that the patient was in a paced rhythm, the family r equested that his pacemaker be deactivated. We discussed the implications of deactivating his pacemaker; he could immediately succumb versus continue to survive several more days. All parties expressed their understanding and were adamant at their request. Family member request to deactivate the pacemaker was reviewed with Dr. Veronica, who recommended discussing the request with cardiology. Dr. Singh was contacted, who declined to deactivate the pacemaker and recommended ethics committee review. Ethics committee review was initiated and family members were updated on the status of their request. Later that evening, I was informed that the ethics review concluded that we could honor request to deactivate pacemaker due to the patient's immediately terminal prognosis. Pacemaker interrogator was obtained and [employer] rep contacted. Immediately prior to deactivation, family was asked if they wished to proceed. Both the patient's and daughter expressed confirmation and gratitude that their request had been honored. Pacemaker was subsequently deactivated at 1945. Care Planning Goals: Comfort Care Measures only. Remain at [facility] for duration. Evaluate possibility of deactivating pacemaker (not just AICD). Increase Ativan frequency for seizure prevention. Time Spent: 90 min over the course of 3 different family meetings each held on 11/25/19
== END 2019-11-26 01:03 | DRG 64 ==
LOC: ER 08:23 → EH 11:10 → 4W 14:59
PROVIDERS: ADMIT Hospitalist; ATTEND Registered Nurse
DX: I60.8 Other nontraumatic subarachnoid hemorrhage (principal); G93.5 Compression of brain; C15.9 Malignant neoplasm of esophagus, unspecified; E78.5 Hyperlipidemia, unspecified; I25.2 Old myocardial infarction; R40.2440 Other coma, without documented Glasgow coma scale score, or with partial score reported, unspecified time; Z51.5 Encounter for palliative care; Z90.49 Acquired absence of other specified parts of digestive tract; Z91.81 History of falling; Z79.01 Long term (current) use of anticoagulants; Z79.899 Other long term (current) drug therapy; Z88.8 Allergy status to other drugs, medicaments and biological substances; Z88.0 Allergy status to penicillin; Z93.0 Tracheostomy status; Z95.810 Presence of automatic (implantable) cardiac defibrillator
CPT/HCPCS: 36415; 51702; 70450; 71045; 80053; 81001; 82550; 82803; 82962; 83605; 84439; 84481; 84484; 85025; 87040; 93005; 93010; 96360; 96361; 99291; J2060; J2270; J7030